=== PATIENT | male | born 1945 | race Caucasian/White ===

== ENCOUNTER 2017-01-27 06:26 | Day surgery (SDC) | payer MEDICARE, OTHER ==
--- NOTE | ~2017-01-27 | EGD ---
EGD REPORT [facility] [address] [address] NAME: MODESTA ONEILL : [birth year] STATUS : REG [facility] PAT#: [id number] AGE: 71 ADM/REG DATE : 01/27/17 MR#: [id number] REPORT SERV DATE: 01/27/17 DICTATED BY: ILNDEN POTTER DATE: 01/27/17 REPORT STATUS : Draft TRANSCRIBED BY: [employer] DATE: 01/27/17 [facility] Patient Name: Modesta Oneill Date of : 1945 Attending MD: LINDEN POTTER MD Procedure Date No Time: 01/27/2017 Procedure: Colonoscopy Indications: High risk colon cancer surveillance: Personal history of colonic polyps Referring MD: CANDICE BURTON MD Medicines: as per anesthesia Complications: No immediate complications. Procedure: Pre-Anesthesia Assessment: - ASA Grade Assessment: III - A patient with severe systemic disease. After I obtained informed consent, the scope was passed under direct vision. Throughout the procedure, the patient's blood pressure, pulse, and oxygen saturations were monitored continuously. The PCF [id number] was introduced through the anus and advanced to the cecum, identified by appendiceal orifice and ileocecal valve. The colonoscopy was performed without difficulty. The patient tolerated the procedure. The quality of the bowel preparation was adequate to identify polyps. Findings: The perianal and digital rectal examinations were normal. Two sessile polyps were found in the ascending colon. The polyps were 3 to 4 mm in size. These polyps were removed with a cold biopsy forceps. Resection and retrieval were complete. Internal hemorrhoids were found during endoscopy and were mild. Impression: - Two 3 to 4 mm polyps in the ascending colon. Resected and retrieved. - Internal hemorrhoids. Recommendation: - Await pathology results. - Repeat colonoscopy for surveillance based on pathology results. Procedure Code(s): --- Professional --- 24469, Colonoscopy, flexible, proximal to splenic flexure; with biopsy, single or multiple Diagnosis Code(s): --- Professional --- EGD REPORT [facility] [address] [place]. [address] NAME: MODESTA ONEILL : [birth year] STATUS : REG [facility] PAT#: [id number] AGE: 71 ADM/REG DATE : 01/27/17 MR#: [id number] REPORT SERV DATE: 01/27/17 DICTATED BY: LINDEN POTTER. DATE: 01/27/17 REPORT STATUS : Draft TRANSCRIBED BY: [employer] DATE: 01/27/17 D12.2, Benign neoplasm of ascending colon K64.8, Other hemorrhoids Z86.010, Personal history of colonic polyps CPT copyright 2013 [employer]. All rights reserved. The codes documented in this report are preliminary and upon skiff operator review may be revised to meet current compliance requirements. LINDEN POTTER MD 01/27/2017 8:32 AM This report has been signed electronically. Number of Addenda: 0 Note Initiated On: 01/27/2017 7:31 AM Scope Withdrawal Time 0 hours 6 minutes 31 seconds [address] [facility] [place] [address]
[~2017-01-27 06:26] MED LIST: ASAB PO; AVODART PO; COZ50 PO; GLUCCHONDR PO; GLUCOTROL5 PO; GLUCPH PO; K-TABS10 MEQ PO; MAX25 PO; MULTIPLE VIT PO; ONGLYZA2.5 MG PO; ONGLYZA5 MG PO; PRAV10 PO; PRAVAC PO; PRIN10 PO; REFRESH PLUS O0.4 ML OPH; SEPTRA1 TAB PO; TOPXL50 PO; VICODINTAB PO; [UNRECOGNIZED DRUG - OTHER] PO
== END 2017-01-27 23:59 | disposition home health service (06) ==
LOC: DMU 06:26
PROVIDERS: Internal Medicine Gastroenterology
PROC: 0DBK8ZX Excision of Ascending Colon, Via Natural or Artificial Opening Endoscopic, Diagnostic (ICD-10-PCS; principal; 2017-01-27 08:00)
DX: D12.2 Benign neoplasm of ascending colon (principal); K64.8 Other hemorrhoids; E11.9 Type 2 diabetes mellitus without complications; E78.00 Pure hypercholesterolemia, unspecified; M19.90 Unspecified osteoarthritis, unspecified site; I10 Essential (primary) hypertension; Z86.010 Personal history of colon polyps; Z87.442 Personal history of urinary calculi; Z98.890 Other specified postprocedural states
CPT/HCPCS: 82962; 88305